=== PATIENT | male | born 1965 | race Caucasian/White ===

== ENCOUNTER → 2019-09-10 | Day surgery (SDC) | payer BC ==
[~2019-09-10] MED LIST: Ketamine 200 MG/20 ML MDV IV ONE; Lactated Ringers 1,000 ML IV SCH; Propofol 200 MG/20 ML SDV IV ONE; fentaNYL 100 MCG/2 ML SDV IV ONE
[2019-09-10 10:13] VITALS: BP 120/77; PULSE 52
--- NOTE | 2019-09-10 13:25 | OR ---
DATE OF OPERATION: 09/10/2019 PREOPERATIVE DIAGNOSIS: 1. HISTORY OF POLYPS. 2. ALTERED BOWEL HABITS. POSTOPERATIVE DIAGNOSIS: 1. HISTORY OF POLYPS. 2. ALTERED BOWEL HABITS. SURGEON: David Sotelo MD PROCEDURE: FULL-LENGTH COLONOSCOPY WITH FORCEPS POLYP REMOVAL X2. ANESTHESIA: MAC. COMPLICATIONS: None. SPECIMEN: Two small 2 to 3 mm sessile polyps, see report. FINDINGS: 1. Full-length colonoscopy. 2. Sessile polyps x2, 2 to 3 mm. RECOMMENDATIONS: Followup colonoscopy in 5 years. INDICATIONS: Patient about 3 or 4 weeks ago had some altered bowel habits, looser stools that were smaller. By the time of the scope, it had resolved, but he was sent for diagnostic scope due to altered bowel habits. DESCRIPTION OF PROCEDURE: The patient was prepped and draped, placed in the left lateral decubitus position. A lubricated Olympus colonoscope was inserted and easily advanced to the cecum. We were able to directly visualize the ileocecal valve along with appendiceal orifice, palpate and visualize the light in the right lower quadrant. The bowel prep was adequate. Upon withdrawal of the scope, the cecum, ascending, transverse colon were benign. Just past the splenic flexure, patient had a small 2 to 3 mm sessile polyp removed in its entirety with a forceps. The descending colon was benign. Throughout the sigmoid colon, the patient had one more small polyp around 50 cm, measuring 2 to 3 mm as well, removed with forceps without any difficulty. There were no signs of any active colitis, diverticula, worrisome lesions, masses, stricturing, or otherwise. The rectal vault appeared benign. Retroflexion showed no perianal worrisome lesions. The patient does have some hemorrhoidal tissue there. It was very hard to keep the air in him from the entire left colon, was real incompetent of air, but a thorough enough evaluation was accomplished to confidently say there was no worrisome masses. The patient was stable in recovery room after scope removed. TANVI/CA /[id number]
== END ==
LOC: CC.SDS 08:01
PROVIDERS: ATTEND Family Medicine
DX: D12.5 Benign neoplasm of sigmoid colon (principal); K63.5 Polyp of colon; K64.9 Unspecified hemorrhoids; Z86.010 Personal history of colon polyps; I10 Essential (primary) hypertension; E78.00 Pure hypercholesterolemia, unspecified; R73.01 Impaired fasting glucose; Z88.8 Allergy status to other drugs, medicaments and biological substances; Z91.048 Other nonmedicinal substance allergy status; Z79.899 Other long term (current) drug therapy; Z79.51 Long term (current) use of inhaled steroids; E78.5 Hyperlipidemia, unspecified
CPT/HCPCS: 45380; J2704; J3010; J7120; 00811

== ENCOUNTER 2024-09-10 09:48 | Day surgery (SDC) | payer BC ==
[2024-09-10] MEDS: Lactated Ringers 1,000 ML IV SCH (10:13)
[2024-09-10] MEDS ORDERED: Ketamine 200 MG/20 ML MDV ONE (10:22)
[2024-09-10] MEDS ORDERED: Propofol 200 MG/20 ML SDV ONE ×2 (10:22)
[2024-09-10] MEDS ORDERED: Midazolam 1 MG/ML 2 ML SDV ONE (10:22)
[2024-09-10] MEDS ORDERED: fentaNYL 50 MCG/ML SDV ONE (10:22)
[2024-09-10] MEDS ORDERED: Flumazenil 0.1 MG/ML 5 ML MDV ONE (10:22)
[2024-09-10 11:59] VITALS: BP 119/81; PULSE 53
== END 2024-09-10 11:55 | disposition home or self-care (01) ==
LOC: CC.SDS 09:48
PROVIDERS: ATTEND Family Medicine
DX: Z12.11 Encounter for screening for malignant neoplasm of colon (principal); D12.3 Benign neoplasm of transverse colon; K57.30 Diverticulosis of large intestine without perforation or abscess without bleeding; E78.00 Pure hypercholesterolemia, unspecified; I10 Essential (primary) hypertension; Z88.8 Allergy status to other drugs, medicaments and biological substances; Z91.09 Other allergy status, other than to drugs and biological substances; Z79.899 Other long term (current) drug therapy; Z86.0101 Personal history of adenomatous and serrated colon polyps
CPT/HCPCS: 00811; J2250; J2704; J3010; J3490; J7120